=== PATIENT | female | born 1980 | race Caucasian/White ===

== ENCOUNTER 2024-10-19 13:14 | Emergency (ER) | payer OTHER ==
[~2024-10-19] VITALS: Ht 175.3 cm; Wt 76.7 kg
[2024-10-19 13:41] LABS: BASOPHILS 0.7 % (0-2); EOSINOPHILS 2.7 % (0-6); HEMATOCRIT 46.7 % (35.0-50.0); HEMOGLOBIN 15.8 g/dL (12.0-18.0); LYMPHOCYTES 14.5 % (24-44); MCH 30.5 (27-36); MCV 89.8 fl (81-99); MONOCYTES 7.9 % (0-12); NEUTROPHILS 74.2 % (39-80); PLATELET COUNT 350 K/uL (140-440); RBC 5.19 M/ul (4.3-5.7); RDW 14.6 (10.5-15.0)
[2024-10-19] MEDS ORDERED: SODIUM CHLORIDE 0.9% 1,000 ML IV PRN (13:45)
[2024-10-19] MEDS ORDERED: KETOROLAC TROMETHAMINE 15 MG/ML VIAL IV ONE (13:45)
[2024-10-19] MEDS ORDERED: ondansetron HCL 4 MG/2 ML VIAL IV PRN (13:45)
[2024-10-19 14:08] LABS: ALBUMIN 3.6 g/dL (3.4-5.0); ALBUMIN/GLOBULIN RATIO 0.95 (1.1-2.4); ANION GAP 14.2 (7-21); BILIRUBIN, TOTAL 0.3 mg/dL (0.2-1.0); BUN/CREATININE RATIO 15.06 (6.0-28.6); CALCIUM 9.2 mg/dL (8.5-10.1); CREATININE, SERUM 0.73 mg/dL (0.55-1.02); POTASSIUM 4.2 mmol/L (3.5-5.1); PROTEIN, TOTAL 7.4 g/dL (6.4-8.2)
[2024-10-19 15:33] LABS: BILIRUBIN, URINE NEGATIVE (negative); BLOOD/HGB, URINE MODERATE (Negative); KETONE, URINE NEGATIVE (Negative); LEUK ESTERASE, URINE MODERATE (negative); NITRITE, URINE NEGATIVE (negative); PH, URINE 5.5 (5-7)
[2024-10-19 15:40] LABS: MARIJUANA (THC), UR NEGATIVE (NEGATIVE)
[2024-10-19 15:41] LABS: AMPHETAMINES, UR NEGATIVE (NEGATIVE); BARBITURATES, UR NEGATIVE (NEGATIVE); BENZODIAZEPINES, UR NEGATIVE (NEGATIVE); BUPRENORPHINE,UR NEGATIVE (NEGATIVE); COCAINE, UR NEGATIVE (NEGATIVE); MDMA, UR NEGATIVE (NEGATIVE); METHADONE, UR NEGATIVE (NEGATIVE); METHAMPHETAMINE, UR NEGATIVE (NEGATIVE); OPIATES, UR NEGATIVE (NEGATIVE); OXYCODONE, UR NEGATIVE (NEGATIVE); PHENCYCLIDINE, UR NEGATIVE (NEGATIVE); TRICYCLIC ANTIDEPRESSANT, UR NEGATIVE (NEGATIVE)
[2024-10-19 15:50] LABS: BACTERIA, URINE 1+ /hpf (negative); CASTS, URINE NONE SEEN \\lpf; CRYSTALS, URINE NONE SEEN (0-1+); EPITHELIAL CELLS, URINE SQUAMOUS 3+ /lpf (0-1+)
[2024-10-19 15:51] LABS: COLLECTION TYPE, URINE CLEAN CATCH; REFLEX CULTURE, URINE No (No)
[2024-10-19] MEDS ORDERED: CEFTRIAXONE SODIUM 2 GM in SODIUM CHLORIDE 0.9% 100 ML IV ONE (16:00)
[2024-10-19] MEDS ORDERED: ONDANSETRON ODT4 MG PO (16:05)
[2024-10-19] MEDS ORDERED: CEFDINIR300 MG PO (16:05)
[2024-10-19] MEDS ORDERED: NAPROSYN500 MG PO (16:05)
[2024-10-19 17:02] VITALS: BP 117/70
[2024-10-19 17:03] LABS: N. GONORRRHOEAE BY PCR NOT DETECTED (NOT DETECT)
[2024-10-19 17:11] LABS: BILIRUBIN, URINE NEGATIVE (negative); BLOOD/HGB, URINE TRACE-I (Negative); KETONE, URINE NEGATIVE (Negative); LEUK ESTERASE, URINE SMALL (negative); NITRITE, URINE NEGATIVE (negative); PH, URINE 6.5 (5-7)
[2024-10-19 17:18] LABS: CRYSTALS, URINE AMORPHOUS PHOSPH 3+ (0-1+); EPITHELIAL CELLS, URINE SQUAMOUS 1+ /lpf (0-1+); RED BLOOD CELLS, URINE 0-1 /hpf (0-5)
[2024-10-19 17:19] LABS: CASTS, URINE GRANULAR 1+ \\lpf; REFLEX CULTURE, URINE No (No)
[2024-10-21 11:44] LABS: RAPID PLASMA REAGIN (RPR) Non Reactive (Non Reactive)
== END 2024-10-19 17:02 | disposition home or self-care (01) ==
LOC: ED 13:14
PROVIDERS: Emergency Medicine
DX: N12 Tubulo-interstitial nephritis, not specified as acute or chronic (principal); Z88.0 Allergy status to penicillin; Z88.5 Allergy status to narcotic agent
CPT/HCPCS: 36415; 80053; 80307; 81001; 84703; 85025; 96365; 96375; 99284-25; J0696; J1885; J2405; J7030

== ENCOUNTER 2024-10-25 10:33 | Emergency (ER) | payer OTHER ==
[~2024-10-25] VITALS: Ht 175.3 cm; Wt 77.0 kg
[~2024-10-25 10:33] MED LIST: CEFDINIR300 MG PO; NAPROSYN500 MG PO; ONDANSETRON ODT4 MG PO
--- OUTSIDE RECORDS SUMMARY | 2024-10-25 10:40 | XMS ---
PreManage Notification: YUN LANGE [employer] Events No recent Security Events currently on file CRITERIA MET - [facility] - 2 Visits in 30 Days CARE PROVIDERS -[facility] Dentist: Surgical Services Director Current PHONE: [phone] -Antonio- Dentist: Surgical Services Director [facility] PHONE: [phone] CB PENA [facility]: [facility] PHONE: Unknown RORY COTTO Nurse Practitioner: Family Current PHONE: [phone] Joey has no Care Guidelines for this patient. Linus VISIT COUNT (12 MO.) [address] [facility] TOTAL 3 NOTE: Visits indicate total known visits. ED/UCC VISIT TRACKING (12 MO.) 10/25/2024 10:33 [facility]EY [facility] [place] TYPE: Emergency COMPLAINT: - VISUAL CHANGES 10/19/2024 13:16 JOEY [facility]izo [place] TYPE: Emergency COMPLAINT: - FLANK PAIN DIAGNOSES: - Allergy status to narcotic agent - Allergy status to penicillin - Tubulo-interstitial nephritis, not specified as acute or chronic - Unspecified abdominal pain 06/17/2024 14:02 [facility]NE OR TYPE: Emergency INPATIENT VISIT TRACKING (12 MO.) No inpatient visits to display in this time frame [email or web address]
[2024-10-25 11:42] VITALS: BP 138/79
== END 2024-10-25 11:44 | disposition home or self-care (01) ==
LOC: ED 10:33
DX: H54.61 Unqualified visual loss, right eye, normal vision left eye (principal); Z88.0 Allergy status to penicillin; Z88.5 Allergy status to narcotic agent
CPT/HCPCS: 99283

== ENCOUNTER 2024-10-31 09:44 | Emergency (ER) | payer OTHER ==
[~2024-10-31] VITALS: Ht 175.3 cm; Wt 74.4 kg
--- OUTSIDE RECORDS SUMMARY | 2024-10-31 09:46 | XMS ---
PreManage Notification: YUN LANGE Security Operations Associate Events No recent Security Events currently on file CRITERIA MET - [facility] - 2 Visits in 30 Days CARE PROVIDERS -[facility] Dentist: Legislators Current PHONE: [phone] -Antonio- Dentist: Legislators [facility] PHONE: [phone] CB PENA [facility]: [facility] PHONE: Unknown RORY COTTO Nurse Practitioner: Family Current PHONE: [phone] Joey has no Care Guidelines for this patient. Linus VISIT COUNT (12 MO.) 3 JOEY Sesay [facility] TOTAL 4 NOTE: Visits indicate total known visits. ED/UCC VISIT TRACKING (12 MO.) 10/31/2024 09:45 JOEY [facility]izo [place] TYPE: Emergency COMPLAINT: - MEDICATION REFILL 10/25/2024 10:33 JOEY Santizo [place] TYPE: Emergency COMPLAINT: - VISUAL CHANGES DIAGNOSES: - Allergy status to narcotic agent - Allergy status to penicillin - Unqualified visual loss, right eye, normal vision left eye 10/19/2024 13:16 JOEY [facility] [place] TYPE: Emergency COMPLAINT: - FLANK PAIN DIAGNOSES: - Allergy status to narcotic agent - Allergy status to penicillin - Tubulo-interstitial nephritis, not specified as acute or chronic - Unspecified abdominal pain 06/17/2024 14:02 [facility] [place] TYPE: Emergency INPATIENT VISIT TRACKING (12 MO.) No inpatient visits to display in this time frame [email or web address]
[2024-10-31 10:02] LABS: BILIRUBIN, URINE NEGATIVE (negative); BLOOD/HGB, URINE SMALL (Negative); KETONE, URINE SMALL (Negative); LEUK ESTERASE, URINE TRACE (negative); NITRITE, URINE POSITIVE (negative)
[2024-10-31] MEDS ORDERED: ATROPINE SULFATE5 M1 OP (10:03)
[2024-10-31] MEDS ORDERED: PRED FORTE5 ML (10:03)
[2024-10-31] MEDS ORDERED: OFLOXACIN5 M1 OP (10:03)
[2024-10-31 10:09] LABS: BACTERIA, URINE 4+ /hpf (negative); CASTS, URINE NONE SEEN \\lpf; COLLECTION TYPE, URINE CLEAN CATCH; CRYSTALS, URINE NONE SEEN (0-1+); EPITHELIAL CELLS, URINE SQUAMOUS 1+ /lpf (0-1+); RED BLOOD CELLS, URINE 0-1 /hpf (0-5); REFLEX CULTURE, URINE Yes (No)
[2024-10-31] MEDS ORDERED: CEPHALEXIN500 M1 PO (10:33)
[2024-10-31 10:37] VITALS: BP 140/91
== END 2024-10-31 10:37 | disposition home or self-care (01) ==
LOC: ED 09:44
PROVIDERS: Emergency Medicine
DX: N39.0 Urinary tract infection, site not specified (principal); Z88.0 Allergy status to penicillin; Z88.5 Allergy status to narcotic agent
CPT/HCPCS: 81001; 84703; 87077; 87088; 87186; 99283